=== PATIENT | female | born 1985 | race Caucasian/White ===

== ENCOUNTER → 2023-01-04 | Outpatient (CLI) | payer MEDICAID ==
[~2023-01-04] MED LIST: LORA10TA76 PO; bcp
--- NOTE | 2023-01-04 17:30 | Diagnostic Imaging Report ---
INDICATION: Pain. EXAMINATION: Right ankle 01/04/2023 3 views ankle FINDINGS: There is no evidence for an acute fracture or dislocation. The joint spaces are well maintained. There is no significant soft tissue swelling. IMPRESSION: No acute process. Dictated by: Dictated on workstation # [id number]
--- NOTE | 2023-01-04 17:55 | Diagnostic Imaging Report ---
EXAM: FOOT, RIGHT, 3 VIEW. INDICATION: Right foot pain. COMPARISON: None. FINDINGS: No fracture or malalignment. Soft tissue shadows are unremarkable. IMPRESSION: Negative right foot radiographs. Dictated by: Dictated on workstation # [id number]
== END ==
LOC: RAD 16:28
PROVIDERS: ATTEND Family Medicine
DX: M25.571 Pain in right ankle and joints of right foot (principal)
CPT/HCPCS: 73610; 73630

== ENCOUNTER → 2023-05-03 | Outpatient (CLI) | payer MEDICAID ==
--- NOTE | 2023-05-03 10:52 | Diagnostic Imaging Report ---
PROCEDURE: Pelvic comp/transvaginal sonogram. TECHNIQUE: Complete transabdominal pelvic sonography was performed. INDICATION: Amenorrhea. Uterus measures 5.4 x 4.1 x 2.5 cm. Endometrium is 3 mm in thickness. No myometrial mass is identified. Ovaries cannot be visualized due to overlying bowel gas. No adnexal mass or free pelvic fluid is identified. IMPRESSION: Nonvisualized ovaries. The study is otherwise unremarkable. Dictated by: Dictated on workstation # [id number]
== END ==
LOC: RAD 10:08
PROVIDERS: ATTEND Family Medicine
DX: N91.2 Amenorrhea, unspecified (principal)
CPT/HCPCS: 76830; 76856